=== PATIENT | male | born 1990 | race Caucasian/White ===

== ENCOUNTER 2017-01-13 20:52 | Inpatient (IN) | payer BC, OTHER ==
[~2017-01-13] VITALS: Ht 185.4 cm; Wt 81.6 kg
--- NOTE | 2017-01-14 04:08 | NUR ---
ADMISSION NOTE Pt arrived ambulatory to the [facility] 3rd floor (accompanied by [facility] staff) at approximately 0325. Pt is a 26 y/o male ( born on 1990) being admitted for Xanax, and Heroin, Cocaine, and Marijuana dependence and use. Pt reported allergies to SSRI's (Selective Serotonin Reuptake Inhibitors) and also reported PMH of ADHD, Anxiety, Body Dysmorphia, Depression, OCD, and PTSD. Pt is unmarried and without children. Pt reported "I completed two years of college, but I'm not working right now. I have an apartment, but my lease is up Thursday and after this I'm going to a sober living after this." Pt reported not having a primary care physician or psych doctor at this time. Pt arrived with one bottle of Gabapentin 600 mg , and also reported taken Wellbutrin(6 months ago) and Seroquel(2 months ago). Pt was then asked about his substance use history including; what substance (s) he uses, the frequency, dose, route, last use, and last amount used. Pt responded " I've been using Heroin for three years. I use needles. It's not every day, but more like every other day. For the past 2 months it's been like 1 gram. I've been taking Xanax on and off for years, but for the past 2 months I've been taking up to five bars(10 mg) every few days. I just started mixing a little Cocaine with the Heroin, so it's never a lot. Probably up to half a gram(0.5 gram). I've been smoking Marijuana since I was 15 y/o (approx. 11 years). I used to smoke like a quarter of an ounce a day. Now I probably smoke 3 grams a day. The last time I had Heroin, Cocaine, and Marijuana was today before I came(01/14/17). Literally a couple of hours ago. I had a gram of Heroin, half a gram of Cocaine (0.5 g) and I smoked a blunt (equivalent to 1 gram). I took 3 bars (6 mg ) of Xanax three days ago (01/11/17). I've taken Valium and Klonopin in the past, but not in a long time and I don't take them anymore. Pt was then asked about his treatment history. Pt stated " I was in [facility] for about 1 month, then I went to [facility] and I was there for 6 or 7 weeks." Upon assessment pt is a/o x 4 with no changes in LOC. Pt's skin is dry and intact. Pt's breathing is even and unlabored. No SOB noted or reported. Lung auscultations clear in all lobes. PERRLA noted. Hand ob nurse strong bilaterally. Skin turgor indicates adequate hydration. Bowel sounds active in all four quadrants. Abdomen soft and non distended. Pt reported having a bowel movement yesterday morning (01/13/17). Flatulence is present. Pt denies any pain/discomfort at this time. Pt is encouraged to notify staff of any changes in condition or of any concerns. Pt verbalized an understanding. Vital Signs: BP: 107/75 P:90 T: 98.4 R: 20 Pain: 0/10 Oxygen Saturation: 99% COW: 2 CIWA: 0. All safety measures in place; side rails up x 2, bed locked and in low position, and call light within reach. UA to be collected and sent to the lab for testing. Will continue to monitor.
[2017-01-14] MEDS ORDERED: GABA600T2 PO (04:22)
--- NOTE | 2017-01-14 05:30 | NUR ---
NURSE'S NOTE UA was collected and sent to the lab for testing.
[2017-01-14 05:38] LABS: *AMPHETAMINE, URINE POSITIVE (NEGATIVE); *BARBITURATE, URINE NEGATIVE (NEGATIVE); *CANNABINOID, URINE POSITIVE (NEGATIVE); *COCCAINE, URINE POSITIVE (NEGATIVE); *OPIATE, URINE POSITIVE (NEGATIVE); *PHENCYCLIDINE SCREEN,URINE NEGATIVE (NEGATIVE)
[2017-01-14] MEDS ORDERED: LOPERAMIDE HCL 2 MG CAPSULE PO PRN ×2 (06:15)
[2017-01-14] MEDS ORDERED: LORAZEPAM 2 MG/1 ML VIAL IM PRN ×2 (06:15→10:00)
[2017-01-14] MEDS ORDERED: MIRALAX 17 GM POWD.PACK PO PRN (06:15)
[2017-01-14] MEDS ORDERED: MAG HYDROX/AL HYDROX/SIMETH 30 ML LIQUID UDC PO PRN (06:15)
[2017-01-14] MEDS ORDERED: PROMETHAZINE HCL 25 MG/1 ML VIAL IM PRN (06:15)
[2017-01-14] MEDS ORDERED: diphenhydrAMINE 50 MG CAPSULE PO PRN (06:15)
[2017-01-14] MEDS ORDERED: ONDANSETRON ODT 4 MG TAB.RAPDIS SL PRN (06:15)
[2017-01-14] MEDS ORDERED: LORAZEPAM 1 MG TABLET PO PRN ×4 (06:15→10:00)
[2017-01-14] MEDS ORDERED: MAGNESIUM HYDROXIDE 30 ML LIQUID UDC PO PRN (06:15)
[2017-01-14] MEDS ORDERED: BUPRENORPHINE HCL 2 MG TAB.SUBL SL PRN ×2 (06:15→10:00)
--- NOTE | 2017-01-14 07:05 | NUR ---
Start of Shift Endorsement received from nightshift nurse. Pt is a 26 y/o admitted for Heroin, cocaine and xanax dependence. Pt has been placed under observation until farther evaluation by Dr. Pandey. Pt is tolerating the detox at this time AEB COWS 2, CIWA 1 and reports sleeping 3 hours. VS WNL, Full Code. PT is alert and oriented x4. Pt is in STABLE condition at this time. Remains compliant with medication and diet regimen. All needs have been met, All safety measures in place per hospital policy. Bed in lowest position, side rails up x2, call-light within reach. Will continue to monitor
--- NOTE | 2017-01-14 07:25 | NUR ---
END OF SHIFT NOTE Pt is a 26 y/o male admitted today (01/14/17) for Xanax, Heroin, Cocaine, and Marijuana dependence and use. Pt reported having a allergy to SSRI's (Selective Serotonin Reuptake Inhibitors) and also reported a PMH of ADHD, anxiety, body dysmorphia, depression, OCD, and PTSD. Pt is not on a scheduled taper at this time but has PRN medications for any discomfort/distress. Pt didn't receive any PRNS during the shift. Pt slept for a total of 2 hours. Last COW: 2 and CIWA: 2 at the time of admission (approx 0400). All safety measures in place; side rails up x 2, bed locked and in low position , and call light within reach. Will continue to monitor.
[2017-01-14 07:28] LABS: BASOPHILS # (AUTO) 0.1 K/uL (0.0-0.2); BASOPHILS % (AUTO) 1.5 % (0.0-2.0); EOSINOPHILS # (AUTO) 0.1 K/uL (0.0-0.7); EOSINOPHILS % (AUTO) 1.9 % (0.0-7.0); HEMATOCRIT 36.1 % (40.0-50.0); HEMOGLOBIN 12.1 g/dL (14.0-18.0); LYMPHOCYTES # (AUTO) 1.8 K/uL (0.8-4.8); LYMPHOCYTES % (AUTO) 25.4 % (20.5-51.5); MEAN CORPUSCULAR HEMOGLOBIN 28.9 uug (27.0-31.0); MEAN CORPUSCULAR HGB CONC 33 g/dL (32.0-37.0); MEAN CORPUSCULAR VOLUME 86.6 fL (82.0-92.0); MONOCYTES % (AUTO) 14.8 % (0.0-11.0); NEUTROPHILS # (AUTO) 3.9 K/uL (1.8-8.9); NEUTROPHILS % (AUTO) 56.4 % (38.5-71.5); PLATELET COUNT (AUTO) 250 K/uL (150-450); RED BLOOD CELL COUNT(AUTO) 4.17 MIL/uL (4.70-6.10); RED CELL DISTRIBUTION WIDTH 12.7 % (11.5-14.5); WHITE BLOOD COUNT (AUTO) 6.9 K/uL (4.0-11.2)
[2017-01-14 07:44] LABS: ALANINE AMINOTRANSFERASE 18 U/L (16-63); ALBUMIN 3.4 g/dL (3.4-5.0); ALKALINE PHOSPHATASE 55 U/L (50-136); AMYLASE 46 U/L (25-115); ASPARTATE AMINOTRANSFERASE 16 U/L (15-37); BILIRUBIN,TOTAL 0.3 mg/dL (0.2-1.0); CALCIUM 8.3 mg/dL (8.5-10.1); CARBON DIOXIDE 29 mmol/L (21-32); CHLORIDE 104 mmol/L (98-107); GFR 90 mL/min (>60); GLUCOSE 104 mg/dL (74-106); LIPASE 103 U/L (73-393); MAGNESIUM 2.1 mg/dL (1.8-2.4); POTASSIUM 4.2 mmol/L (3.5-5.1); SODIUM SERUM 141 mmol/L (136-145); TOTAL PROTEIN, SERUM 6.8 g/dL (6.4-8.2); UREA NITROGEN, BLOOD 23 mg/dL (7-18)
[2017-01-14 08:00] VITALS: BP 121/64
[2017-01-14 08:00] LABS: ETHANOL < 3 MG/DL (0-0)
[2017-01-14 08:42] LABS: HIV-1 p24 ANTIGEN NON REACTIVE (NONREACTIVE); HIV-1/2 ANTIBODY NON REACTIVE (NONREACTIVE)
[2017-01-14] MEDS ORDERED: TUBERCULIN,PURIF.PROT.DERIV. 5 TU/0.1 ML TEST ID ONE (09:00)
[2017-01-14] MEDS: MULTIVITAMINS,THERAPEUTIC TABLET PO SCH (11:01)
[2017-01-14 12:00] VITALS: BP 127/66
--- NOTE | 2017-01-14 12:24 | NUR ---
PRN Medications Administered PRN Ativan and Robaxin for CIWA 8 per protocol. Will Re-assess.
[2017-01-14] MEDS: METHOCARBAMOL 750 MG TABLET PO PRN (12:27)
[2017-01-14] MEDS ORDERED: Medication Not On Formulary EA (Gabapentin 1 TAB) PO SCH (13:00)
--- NOTE | 2017-01-14 13:00 | NUR ---
Medication Re-assessment Medications were effective, CIWA 5 upon re-assessment.
[2017-01-14] MEDS ORDERED: HYDROXYZINE PAMOATE 25 MG CAPSULE PO PRN (13:15)
[2017-01-14] MEDS: GABAPENTIN 300 MG CAPSULE PO SCH ×2 (14:31→17:41)
[2017-01-14] MEDS: CLONIDINE HCL 0.1 MG TABLET PO SCH ×2 (15:17→20:43)
[2017-01-14 16:00] VITALS: BP 112/58
--- NOTE | 2017-01-14 19:19 | NUR ---
End of Shift Endorsement given to nightshift nurse. Pt is a 26 y/o admitted for Heroin, cocaine and xanax dependence. Pt has been placed under observation until farther evaluation by Dr. Pandey. Pt is tolerating the detox at this time AEB COWS 5, CIWA 3. Pt participated in group and ate all his meals. Pt reports readiness for sobriety. Educated PT on deep breathing techniques. Pt received PRN Robaxin and Ativan per protocol. Intake: 2465, Void x2, BM x0. VS WNL, Full Code. PT is alert and oriented x4. Pt is in STABLE condition at this time. Remains compliant with medication and diet regimen. All needs have been met, All safety measures in place per hospital policy. Bed in lowest position, side rails up x2, call-light within reach. Will continue to monitor
[2017-01-14 20:00] VITALS: BP 112/67
--- NOTE | 2017-01-14 20:00 | NUR ---
1999 Patient received sleeping in prone position. Aroused easily for nurse assess and vital signs. Patient responds to nurse's greeting and introduction with, " Oh hi, how are you?" Patient's color is slightly pale pink and his skin is clean, warm, very slightly moist and intact. Patient is oriented to person, place, day, date and his personal situation. Easily reoriented to time. Patient's lung sounds are clear bilaterally and active bowel sounds are noted x 4 abdominal Quads, per auscultation. Patient states that he has not gone to [facility] as he is 'tired and catching up on his rest right now'. Patient states that he has been eating and taking fluids ad adiel with no real gastric issue so far. Vital signs are" 98.1-91-18 112/67 O2 sat 99%, COWS 4, CIWA 3. Patient denies any pain or other discomfort at this time. Patient was admitted on 01/14/17 for: Heroin, Cocaine, Xanax and Marijuana withdrawal and he s on PRN medications only, with no medication tapers ordered at this time. Patient is pleasant,cooperative and verbally appropriate at this time and he voices no requests presently. Bed is locked and in lowest position, bed rails are up X 2 and call light within patient's easy reach.
[2017-01-14] MEDS: QUETIAPINE FUMARATE 200 MG TABLET PO SCH (20:43)
[2017-01-14] MEDS: DICYCLOMINE HCL 20 MG TABLET PO PRN (20:44)
--- NOTE | 2017-01-14 20:44 | NUR ---
PRN MEDICATION: Prn Bentyl 20 mg p.o. given for c/o abdominal spasms
--- NOTE | 2017-01-14 21:44 | NUR ---
REASSESSMENT PRN MEDICATION: Patient states that his "stomach is feeling better now".
[2017-01-15] VITALS: BP 107/63
--- NOTE | 2017-01-15 04:00 | NUR ---
Patient refused V/S, COWS, CIWA to be done at this time.
--- NOTE | 2017-01-15 06:30 | NUR ---
0630 Patient had an uneventful night, sleeping a total of 7 hours. Total intake was 1,375 ml p.o. and he had 2 voids and no stools at bathroom. Prn medication given noted separately per floor protocol. V/SS afebrile, COWS 4, CIWA 3. Patient is presently sleeping soundly with eyes closed and respirations quiet, even and unlabored at 14. Patient is in stable condition at this time.
--- NOTE | 2017-01-15 07:00 | NUR ---
Start of Shift Endorsement received from nightshift nurse. Pt is a 26 y/o admitted for Heroin, cocaine and Xanax dependence. Pt has been placed under observation until farther evaluation by Dr. Pandey. Pt is tolerating the detox and mildly at this time AEB COWS 4, CIWA 3 and reports sleeping 8 hours. Pt received PRN Benadryl. VS WNL, Full Code. PT is alert and oriented x4. Pt is in STABLE condition at this time. Remains compliant with medication and diet regimen. All needs have been met, All safety measures in place per hospital policy. Bed in lowest position, side rails up x2, call-light within reach. Will continue to monitor
[2017-01-15 08:00] VITALS: BP 98/56
[2017-01-15] MEDS: CLONIDINE HCL 0.1 MG TABLET PO SCH ×3 (09:06→20:46)
[2017-01-15] MEDS: GABAPENTIN 300 MG CAPSULE PO SCH ×3 (09:06→17:19)
[2017-01-15] MEDS: MULTIVITAMINS,THERAPEUTIC TABLET PO SCH (09:06)
[2017-01-15] MEDS ORDERED: BACLOFEN 20 MG TABLET PO PRN (11:00)
[2017-01-15 12:00] VITALS: BP 109/72
[2017-01-15 16:00] VITALS: BP 116/74
[2017-01-15] MEDS: METHOCARBAMOL 750 MG TABLET PO PRN (17:19)
[2017-01-15] MEDS: IBUPROFEN 400 MG TABLET PO PRN (17:19)
[2017-01-15] MEDS: DICYCLOMINE HCL 20 MG TABLET PO PRN (17:19)
--- NOTE | 2017-01-15 17:20 | NUR ---
PRN Medications PT reports diarrhea, restless legs, stomach cramps and 6/10 generalized body aches. Administered Motrin 400mg, Imodium 4mg, Bentyl and Robaxin 750mg. Will re-assess
--- NOTE | 2017-01-15 17:45 | NUR ---
Medication Re-assessment All medications have been effective, pt reports 2/10 pain and COWS went from 9 to 4.
--- NOTE | 2017-01-15 18:59 | NUR ---
START OF SHIFT NOTE Patient endorsed by outgoing day shift nurse. SBAR report received. Patient is a 26 years old male admitted to [facility] on 01/14/2017 for Benzo/Opioid dependence, placed on 3 day Subutex started on 01/15/2017 at 2100. Allergies: SSRI; Regular diet; Full Code; Fall Precautions. No history of seizures. PMH: Anxiety, ADHD, Body dysmorphia, Depression; OCD, PTSD. Substance abuse history: Xanax PO "10 mg q3 d during 2 months". Last used "6 mg on 01/11/2017". Heroin via IV " 1 gram every other last two months". Last used 1 gram on 01/14/2017". Cocaine via IV " 0.5 gram every other day last two months. Last used 0.5 gram on 01/14/2017". Marijuana via inhalation "3 grams every day. Last used 1 gram on 01/14/2017". Upon assessment CIWA 8 COWS 8: Patient c/o increased anxiety, restlessness, sweating, bones and muscles aches 7/10; mild headache; tremors that can felt. VS: T: 98'1; Pulse: 84; RR: 19; O2Sat: 97%; BP: 116/68; Pain level in the legs bilaterally: 7/10. Patient attended activity groups. Safety measures in the place by hospital policy: Call light within reach; Bed in the lowest position and locked; Bed rails up x2. Will continue to monitor. Addendum: 01/16/17 at 1945 by BALJEET GARZA RN Breathing is unlabored and even; Lungs are clear bilaterally; Patient denied SOB and heart pain. Stomach is soft and non-distended. BS are active in all x4 quadrants. Last BM on 01/16/2017. Skin is intact and occasionally moist . Patient c/o pain in his legs bilaterally: 04/27.
--- NOTE | 2017-01-15 18:59 | NUR ---
End of Shift Endorsement given to nightshift nurse. Pt is a 26 y/o admitted for Heroin, cocaine and xanax dependence. Pt has been placed on a 3 day Subutex taper scheduled to began on 01/15/17 at 2100. Pt is tolerating the detox and moderately withdrawing at this time AEB COWS 6, CIWA 2. Pt participated in group and ate all his meals. Pt reports readiness for sobriety. Educated PT on deep breathing techniques. Pt received PRN Robaxin, Clonidine, Bentyl, Imodium and Motrin. Intake: 1750, Void x2, BM x0. VS WNL, Full Code. PT is alert and oriented x4. Pt is in STABLE condition at this time. Remains compliant with medication and diet regimen. All needs have been met, All safety measures in place per hospital policy. Bed in lowest position, side rails up x2, call-light within reach. Will continue to monitor
[2017-01-15 20:00] VITALS: BP 116/68
[2017-01-15] MEDS: QUETIAPINE FUMARATE 200 MG TABLET PO SCH (20:45)
[2017-01-15] MEDS ORDERED: BUPRENORPHINE HCL 2 MG TAB.SUBL SL SCH (21:00)
[2017-01-16] VITALS: BP_SYST 107; BP_SYST 152; BP_DIAS 53; BP_DIAS 70
[2017-01-16 03:06] LABS: HCV AB <0.1 s/co ratio (0.0-0.9); HEPATITIS B CORE AB, IgM Negative (Negative); HEPATITIS B SURFACE AG Negative (Negative)
[2017-01-16 04:00] VITALS: BP 101/52
--- NOTE | 2017-01-16 06:53 | NUR ---
END OF SHIFT NOTE Patient endorsed to outgoing day shift nurse in stable condition. Report given. Patient is a 26 years old male admitted to [facility] on 01/14/2017 for Benzo/Opioid Dependence, placed on 3 day Subutex started on 01/15/2017 at 2100. Allergies: SSRI; Regular diet; Full Code; Fall Precautions. No history of seizures. PMH: Anxiety, ADHD, Body Dysmorphia, Depression, OCD, PTSD. Substance abuse History: Xanax PO "10 mg q 3 d during 2 months". Last used "6 mg on 01/11/2017". Heroin via IV " 1 gram every other last two months". Last used 1 gram on 01/14/2017". Cocaine via IV " 0.5 gram every other day last two months. Last used 0.5 gram on 01/14/2017". Marijuana via inhalation "3 grams every day. Last used 1 gram on 01/14/2017". During my shift CIWA decreased from 8 to 3; COWS decreased from 8 to 4: patient presented with anxiety, restlessness, sweating, bones and muscles aches 7/10; mild headache; tremors that can felt. VS at 04:00: T: 98'2; Pulse: 53; RR: 16; O2Sat: 99%; BP: 101/52; Pain level in the legs bilaterally: 6/10. No PRN Medications administrated last night. Patient slept 10 hours; Intake 855 ml; output x1. Safety measures in the place by hospital policy: Call light within reach; Bed in the lowest position and locked; Bed rails up x2.
--- NOTE | 2017-01-16 07:09 | NUR ---
Start of Shift Endorsement received from nightshift nurse. Pt is a 26 y/o admitted for Heroin, cocaine and Xanax dependence. Pt has been placed on a 3 day Subutex taper set to beging on 01/15/172099, first dose was initiated at 2100. Pt is tolerating the detox and mildly at this time AEB COWS 4, CIWA 3 and reports sleeping 10 hours. No PRN medications were administered. VS WNL, Full Code. PT is alert and oriented x4. Pt is in STABLE condition at this time. Remains compliant with medication and diet regimen. All needs have been met, All safety measures in place per hospital policy. Bed in lowest position, side rails up x2, call-light within reach. Will continue to monitor
[2017-01-16 08:00] VITALS: BP 114/66
[2017-01-16] MEDS: GABAPENTIN 300 MG CAPSULE PO SCH ×3 (08:58→17:43)
[2017-01-16] MEDS: CLONIDINE HCL 0.1 MG TABLET PO SCH ×3 (08:59→20:21)
[2017-01-16] MEDS: BUPRENORPHINE HCL 2 MG TAB.SUBL SL SCH ×3 (09:00→20:21)
[2017-01-16] MEDS: MULTIVITAMINS,THERAPEUTIC TABLET PO SCH (09:00)
[2017-01-16] MEDS: DICYCLOMINE HCL 20 MG TABLET PO PRN (09:05)
[2017-01-16] MEDS: METHOCARBAMOL 750 MG TABLET PO PRN (09:05)
--- NOTE | 2017-01-16 09:05 | NUR ---
PRN Medications Administered PRN Bentyl for stomach cramps, Robaxin for restless legs and Imodium 2mg for diarrhea reported by the pt. Will re-assess.
--- NOTE | 2017-01-16 09:40 | NUR ---
Medication Re-assessment All medications were effective. Pt reports that diarrhea has stopped, and his restless legs and stomach cramps have subsided.
[2017-01-16 12:00] VITALS: BP 107/69
[2017-01-16 16:00] VITALS: BP 125/65
--- NOTE | 2017-01-16 18:41 | NUR ---
START OF SHIFT NOTE Patient endorsed by outgoing day shift nurse. SBAR report received. Patient is a 26 years old male admitted to [facility] on 01/14/2017 for Benzo/Opioid dependence, placed on 3 day Subutex started on 01/15/2017 at 2100 and tolerating well. Allergies: SSRI. Patient placed on Regular diet; Full Code; Fall Precautions. Patient denies history of Seizure. Substance abuse history: Xanax PO "10 mg q3 d during 2 months". Last used "6 mg on 01/11/2017". Heroin via IV " 1 gram every other last two months". Last used 1 gram on 01/14/2017". Cocaine via IV " 0.5 gram every other day last two months. Last used 0.5 gram on 01/14/2017". Marijuana via inhalation "3 grams every day. Last used 1 gram on 01/14/2017". Past Medical History 's collected from patient": Anxiety, ADHD, Body dysmorphia, Depression; OCD, PTSD. Upon assessment CIWA 3 COWS 5: Patient c/o increased anxiety, sweating, bones and muscles aches 5/10; mild headache; tremors that can felt. VS WNL . Breathing is unlabored and even; Lungs are clear bilaterally; Patient denied SOB and heart pain. Stomach is soft and non-distended. BS are active in all x4 quadrants. Skin is intact and occasionally moist . Patient c/o pain in his legs bilaterally: 7/10. Patient attended activity groups. PRN Medications that was given to patient during day shift: Imodium PO; Bentyl PO; and Robaxin were effective. Patient remains compliant with medications and diet regime. Patient's educated for breathing techniques. Patient verbalized understanding by return his knowledge back. Safety measures in the place by hospital policy: Call light within reach; Bed in the lowest position and locked; Bed rails up x2. Will continue to monitor.
--- NOTE | 2017-01-16 18:41 | NUR ---
End of Shift Endorsement given to nightshift nurse. Pt is a 26 y/o admitted for Heroin, cocaine and xanax dependence. Pt has been placed on a 3 day Subutex taper that started on 01/15/17 at 2100. Pt is tolerating the detox and moderately withdrawing at this time AEB COWS 3, CIWA 1. Pt participated in group and ate all his meals. Pt reports readiness for sobriety. Educated PT on importance of learning the appropriate coping techniques to deal with future triggers in his life. Pt received PRN Robaxin, Bentyl and Imodium. Intake: 1500, Void x3, BM x1. VS WNL, Full Code. PT is alert and oriented x4. Pt is in STABLE condition at this time. Remains compliant with medication and diet regimen. All needs have been met, All safety measures in place per hospital policy. Bed in lowest position, side rails up x2, call-light within reach. Will continue to monitor
[2017-01-16 20:00] VITALS: BP 121/75
[2017-01-16] MEDS: QUETIAPINE FUMARATE 200 MG TABLET PO SCH (20:21)
[2017-01-16] MEDS: ACETAMINOPHEN 325 MG TABLET PO PRN (20:30)
--- NOTE | 2017-01-16 20:30 | NUR ---
PRN TYLENOL PO ADMINISTRATION Patient c/o headache and generalized pain: Pain level 7/10. Patient 's assessed. PRN Tylenol discussed with patient. Patient 's educated for actions, adverse reactions, and side effects of the Tylenol. Patient returned back his knowledge by verbalizing understanding. Safety measures on the place: Call light within reach; Bed in the lowest position and locked; Side rails up x2. Will continue to monitor. Addendum: 01/16/17 at 2144 by BALJEET GARZA RN PRN Tylenol PO administrated as ordered at 20:30. Patient tolerated well.
--- NOTE | 2017-01-16 21:30 | NUR ---
REASSESSMENT Patient 's reassessed. Patient denies any pain now:"0/10". PRN Tylenol PO was effective. Safety measures in the place by hospital policy: Call light within reach; Bed is locked and in the lowest position. Will continue to monitor.
[2017-01-17] VITALS: BP 99/54
--- NOTE | 2017-01-17 04:00 | NUR ---
VS REFUSED AND CIWA/COWS DEFERRED Patient refused to be woken up for 00:00 VS. CIWA/COWS deferred d/t patient sleeping to assess while patient is awake. Safety measures on place by hospital policy: Call light within reach; Bed in lowest position and locked; side rails up x2. Will continue to monitor. Addendum: 01/17/17 at 0414 by BALJEET GARZA RN Patient refused to be woken up for 04:00.
--- NOTE | 2017-01-17 06:53 | NUR ---
END OF SHIFT NOTE Patient is a 26 years old male admitted to [facility] on 01/14/2017 for Benzo/Opioid dependence, placed on 3 day Subutex started on 01/15/2017 at 2100. Patient tolerating well to taper. Allergies: SSRI; Regular diet; Full Code; Fall Precautions. No history of seizures. PMH: Anxiety, ADHD, Body dysmorphia, Depression; OCD, PTSD. Substance abuse history: Xanax PO "10 mg q3 d during 2 months". Last used "6 mg on 01/11/2017". Heroin via IV " 1 gram every other last two months". Last used 1 gram on 01/14/2017". Cocaine via IV " 0.5 gram every other day last two months. Last used 0.5 gram on 01/14/2017". Marijuana via inhalation "3 grams every day. Last used 1 gram on 01/14/2017". During shift supervisor rn patient presented with anxiety, restlessness, sweating, bones and muscles aches, headache, tremors that can felt. CIWA decreased from 7 to 4; COWS decreased from 5 to 4. PRN Tylenol PO for pain 04/27 administrated and was effective. Patient remains compliant with treatment plan, medications, and diet regime. Patient slept 10 hours; Intake 1355 ml; Output x2; BM x1. Safety measures in the place by hospital policy: Call light within reach;Bed in the lowest position and locked; Bed rails up x2.Patient endorsed to day shift nurse in stable condition. Report given.
[2017-01-17 08:00] VITALS: BP 122/67
--- NOTE | 2017-01-17 08:05 | NUR ---
START OF SHIFT: RECEIVED PT A/O X 4. HE REPORTS NIGHT SWEATS ,CHILLS AND BODY ACHES. HE ALSO REPORTS FATIGUE. HE CONTINUES ON SUBUTEX TAPER. COWS 6. HE STATES HIS SLEEP WAS RESTLESS LAST NIGHT AND HE WOULD LIKE TO REST AFTER MED ADMINISTRATION. ENCOURAGED INCREASED FLUIDS TO ASSIST IN FACILITATING DETOX PROCESS. WILL CONTINUE TO MONITOR AND OFFER SAFE AND SUPPORTIVE ENVIRONMENT.
[2017-01-17] MEDS: CLONIDINE HCL 0.1 MG TABLET PO SCH ×3 (08:57→20:26)
[2017-01-17] MEDS: MULTIVITAMINS,THERAPEUTIC TABLET PO SCH (08:57)
[2017-01-17] MEDS: GABAPENTIN 300 MG CAPSULE PO SCH ×3 (08:58→20:24)
[2017-01-17] MEDS ORDERED: BUPRENORPHINE HCL 2 MG TAB.SUBL SL SCH (09:00)
[2017-01-17] MEDS ORDERED: ONDANSETRON ODT 4 MG TAB.RAPDIS SL PRN (11:30)
[2017-01-17] MEDS ORDERED: ONDANSETRON 4 MG/2 ML VIAL IM PRN (11:30)
[2017-01-17 12:00] VITALS: BP 110/57
[2017-01-17] MEDS: BUPRENORPHINE HCL 2 MG TAB.SUBL SL SCH ×2 (14:19→20:24)
[2017-01-17 16:00] VITALS: BP 116/67
--- NOTE | 2017-01-17 18:31 | NUR ---
END OF SHIFT: PT CONTINUES ON MODIFIED SUBUTEX TAPER. LAST COWS 5. HE PRESENTS WITH GUARDED AFFECT AND ANXIOUS MOOD. HE ISOLATED IN HIS ROOM MOST OF SHIFT WITH VERY LITTLE INTERACTION WITH PEERS. HE REPORTS SOME ANXIETY,MILD BODY ACHES , AND CHILLS AND SWEATS. HE REFUSED CLONIDINE EARLIER IN SHIFT AND STATED IT CAUSES HIM TO BE TOO DROWSY. PT STATES HE WILL TRY AND ATTEND GROUPS TOMORROW. WILL CONTINUE Addendum: 01/17/17 at 6 by BELLA PEREZ RN TO MONITOR
--- NOTE | 2017-01-17 18:40 | NUR ---
START OF SHIFT Patient is a 26 years old male admitted to [facility] on 01/14/2017 for Benzo/Opiate Dependence, placed on 3 Day Subutex started on 01/15/2017 at 21:00. Patient reported Allergies to SSRI's, Regular Diet. Patient on Full Code, Fall Precautions. No Seizure History. Past Medical History: Anxiety, ADHD, Body Dysmorphia, Depression, OCD, PTSD. Substance Use History: Xanax (PO): " 10 mg every 3 day last 2 months. Last used 0.5 gram on 01/14/2017". Heroin (IV): "1 gram every other day last two months. Last used 1 gram on 01/14/2017". Cocaine (IV): "0.5 gram every other day last two months. Last used 0.5 gram on 01/14/2017". Marijuana (inhalation): " 3 grams daily last two months. Last used 1 gram on 01/14/2017". Recent Hospitalizations/Treatments History: "[facility]" : "10 months". "[facility]": "6 or 7 weeks". Patient endorsed by day shift nurse. Report received. Upon assessment patient is alert and oriented x4, cooperative. Speech is soft. COWS 5; CIWA 4: patient presents with mild anxiety, restlessness, headache: "5/10", bones and joints aching: "5/10", barely sweating. VS: T: 98.6; HR: 86; RR: 19; Room Air O2 Sat: 98%. Pain level in the Right and Left Legs: "5/10".Breathing is unlabored and even. Lungs Sounds are clear bilaterally upon auscultation. Patient denies SOB and Heart pain. Bowel Sounds are active in all x4 quadrants. Abdomen is soft and non-distended. Last BM 's today, 01/17/2017 at 10:00. Skin is intact, warm, and moist by touch. Patient c/o barely sweating. Patient denies N/V and diarrhea. Patient remains compliant with medications, diet, and therapeutic plan. Patient 's educated for Fall Prevention in Hospital. Patient returns his knowledge back by verbalizing understanding. Patient attended activities groups. Safety measures in the place by hospital policy: Call light within reach, bed in the lowest position and locked, bedrails up x2. Will continue to monitor.
[2017-01-17 20:00] VITALS: BP 106/64
[2017-01-17] MEDS: ACETAMINOPHEN 325 MG TABLET PO PRN (20:25)
[2017-01-17] MEDS: QUETIAPINE FUMARATE 200 MG TABLET PO SCH (20:25)
--- NOTE | 2017-01-17 20:25 | NUR ---
PRN TYLENOL PO ADMINISTRATION Patient c/o headache . Pain level 5/10. Patient 's assessed. PRN Tylenol PO discussed with patient. Patient 's educated for actions, adverse reactions, and side effects of the Tylenol. Patient returned back his knowledge by verbalizing understanding. PRN Tylenol PO 650 mg, 2 tabs, administrated as ordered. Patient tolerated well. Will reassessed in 1 hour. Safety measures on the place: Call light within reach; Bed in the lowest position and locked; Side rails up x2. Will continue to monitor.
--- NOTE | 2017-01-17 21:25 | NUR ---
REASSESSMENT Patient is sleeping on his bed. RR: 15. Breathing is unlabored and even. PRN Tylenol PO was effective. Safety measures in the place by hospital policy: Call light within reach, bed in the lowest position and locked, bed rails up x2. Will continue to monitor.
[2017-01-18] VITALS: BP 104/52
--- NOTE | 2017-01-18 04:00 | NUR ---
VS REFUSED AND CIWA/COWS DEFERRED Patient refused to be woken up for 04:00 VS. CIWA/COWS deferred d/t patient sleeping to assess while patient is awake. Safety measures on place by hospital policy: Call light within reach; Bed in lowest position and locked; side rails up x2. Will continue to monitor.
--- NOTE | 2017-01-18 06:48 | NUR ---
END OF SHIFT NOTE Patient is a 26 years old male admitted to [facility] on 01/14/2017 for Benzo/Opioid dependence, placed on 3 day Subutex started on 01/15/2017 at 2100. Patient tolerating well to taper. Allergies: SSRI; Regular diet; Full Code; Fall Precautions. No history of seizures. PMH: Anxiety, ADHD, Body dysmorphia, Depression; OCD, PTSD. Substance abuse history: Xanax PO "10 mg q3 d during 2 months". Last used "6 mg on 01/11/2017". Heroin via IV " 1 gram every other last two months". Last used 1 gram on 01/14/2017". Cocaine via IV " 0.5 gram every other day last two months. Last used 0.5 gram on 01/14/2017". Marijuana via inhalation "3 grams every day. Last used 1 gram on 01/14/2017". 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 CIWA decreased from 4 to 2; COWS decreased from 5 to 2. PRN Tylenol PO for headache was effective. Patient slept 6 hours; Intake 355 ml; output x1. Safety measures in the place by hospital policy: Call light within reach; Bed in the lowest position and locked; Bed rails up. Addendum: 01/18/17 at 0652 by BALJEET GARZA RN Patient endorsed to day shift nurse in stable condition. SBAR report given.
[2017-01-18 08:00] VITALS: BP 92/53
--- NOTE | 2017-01-18 08:00 | NUR ---
START OF SHIFT RECEIVED PT AOX4. PT AWAKE IN BED EATING BREAKFAST.PT SLEPT 6 HOURS LAST NIGHT AND STATES HE FEELS FATIGUED. NO PRNS GIVEN LAST NIGHT PER PAINTER AND BODY WORK REPORT. PT CONTINUES 3 DAY SUBUTEX TAPER. COWS 3 CIWA 3 THIS AM. PT C/O SWEATING AND MILD ANXIETY. PT STATES HE WANTS TO CONTINUE SLEEPING FOR A FEW HOURS BUT PLANS TO ATTEND GROUP AT 1100 THIS AM. BED IN LOWEST POSITION AND CALL [place]CHA IN REACH. WILL CONTINUE TO MONITOR AND PROVIDE SAFE AND SUPPORTIVE ENVIRONMENT.
[2017-01-18] MEDS: GABAPENTIN 300 MG CAPSULE PO SCH ×3 (08:42→20:15)
[2017-01-18] MEDS: CLONIDINE HCL 0.1 MG TABLET PO SCH ×3 (08:42→20:15)
[2017-01-18] MEDS: MULTIVITAMINS,THERAPEUTIC TABLET PO SCH (08:42)
[2017-01-18 08:43] VITALS: BP 120/84
[2017-01-18] MEDS: BUPRENORPHINE HCL 2 MG TAB.SUBL SL SCH ×3 (08:43→20:18)
[2017-01-18 12:00] VITALS: BP 99/64
[2017-01-18 16:00] VITALS: BP 121/76
[2017-01-18] MEDS: DICYCLOMINE HCL 20 MG TABLET PO PRN (16:26)
--- NOTE | 2017-01-18 16:26 | NUR ---
PRN MED Pt c/o of stomach cramps, non pharmacological intervention ineffective. Administered PRN Bentyl 20mg 1 tab Po as ordered. Will cont to monitor for effectiveness.
--- NOTE | 2017-01-18 17:26 | NUR ---
REASSESSMENT Pt reported medication effective, stomach cramps subside. Will cont to monitor.
--- NOTE | 2017-01-18 19:00 | NUR ---
END OF SHIFT NOTE Gave report to night nurse,26 year old male admitted for Benzo, Heroin, Cocaine, and Marijuana dependence and use. Pt reported having a allergy to SSRI's and also reported a PMH of ADHD, anxiety, body dysmorphia, depression, OCD, and PTSD. Pt cont with 3 days Subutex taper tolerated well. Pt received PRN Bentyl for stomach cramps noted to be effective. Vital signs stable. Pt attended all groups and activities. Pt's total intake 2600ml, voided x3 with x1 BM. Last COWS-3, CIWA-2. No s/s of distress noted. Safety measures in place, call light within reach. Pt endorsed to night nurse in stable condition.
[2017-01-18 20:00] VITALS: BP 129/70
--- NOTE | 2017-01-18 20:00 | NUR ---
Start of Shift Pt is a 26 year old male admitted on 01/14/2017 for Opiate/Benzo/Cocaine dependence, placed on 3 day Subutex taper. Pt reported using Heroin IV 1 gram every other day, Xanax PO 10mg every 3 days, Cocaine IV 0.5g every other day and marijuana inh 3g/daily. Pt is allergic to SSRIs, fall precautions - no history of seizures, regular diet and full code. PMH: Anxiety, ADHD, body dysmorphia, depression, OCD and PTSD. Upon assessment, mild tremors noted upon touch, pt is noted with moderate sweat, reports muscle aches, respirations even and unlabored, denies SOB/chest pain, denies n/v/d, skin warm, moist, intact, bowel sounds active x4, abdomen soft. Safety measures in place, call light within reach, side rails up x2, bed locked and in low position. Will continue to monitor.
[2017-01-18] MEDS: QUETIAPINE FUMARATE 200 MG TABLET PO SCH (20:16)
--- NOTE | 2017-01-19 | NUR ---
Pt refused to be woken up for 0000 VS CIWA/COWS deferred d/t pt sleeping, to asses while pt is awake as ordered. Pt is sleeping, no s/s of distress noted, respirations even and unlabored. Safety measures in place, call light within reach, side rails up x2, bed locked and in low position. Will continue to monitor.
--- NOTE | 2017-01-19 04:00 | NUR ---
Pt refused to be woken up for 0400 VS CIWA/COWS deferred d/t pt sleeping, to asses while pt is awake as ordered. Pt is sleeping, no s/s of distress noted, respirations even and unlabored. Safety measures in place, call light within reach, side rails up x2, bed locked and in low position. Will continue to monitor.
--- NOTE | 2017-01-19 07:00 | NUR ---
End of Shift Pt is a 26 year old male admitted on 01/14/2017 for Opiate/Benzo/Cocaine dependence, placed on 3 day Subutex taper. Pt reported using Heroin IV 1 gram every other day, Xanax PO 10mg every 3 days, Cocaine IV 0.5g every other day and marijuana inh 3g/daily. Pt is allergic to SSRIs, fall precautions - no history of seizures, regular diet and full code. PMH: Anxiety, ADHD, body dysmorphia, depression, OCD and PTSD. During shift pt presented with moderate sweat/tremors felt upon touch - scheduled taper medications administered, effective in management of s/s of withdrawal, COWS 2 and CIWA 2. No PRN medications administered, pt is complaint with plan of care. Pt slept for 5 hours, intake of 1091 ml PO and voids x1. Safety measures in place, call light within reach, side rails up x2, bed locked and in low position. Endorsed to day shift nurse.
--- NOTE | 2017-01-19 07:49 | NUR ---
START OF SHIFT NOTE Received report from night nurse, 26 year old male admitted for Benzo, Heroin, Cocaine, and Marijuana dependence and use. Pt reported having a allergy to SSRI's and also reported a PMH of ADHD, anxiety, body dysmorphia, depression, OCD, and PTSD. Pt cont with 3 days Subutex taper tolerated well. Per endorsement pt did not receive any PRN received, slept for 5 hours, Last COWS-2, CIWA-2, vital signs stable. Received pt in his room sleeping responsive to verbal and tactile stimuli, breathing normal no SOB noted, Skin intact warm and dry to touch. No s/s of distress noted. Safety measures in place, call light within reach. Will cont to monitor.
[2017-01-19 08:00] VITALS: BP 106/66
[2017-01-19] MEDS: MULTIVITAMINS,THERAPEUTIC TABLET PO SCH (08:39)
[2017-01-19] MEDS: GABAPENTIN 300 MG CAPSULE PO SCH ×3 (08:39→20:36)
[2017-01-19] MEDS: CLONIDINE HCL 0.1 MG TABLET PO SCH ×3 (08:41→20:36)
[2017-01-19] MEDS ORDERED: BUPRENORPHINE HCL 2 MG TAB.SUBL SL SCH (09:00)
[2017-01-19 12:00] VITALS: BP 93/64
[2017-01-19] MEDS: IBUPROFEN 400 MG TABLET PO PRN (14:10)
--- NOTE | 2017-01-19 14:10 | NUR ---
PRN MED Pt is c/o of headache 01/26, non pharmacological intervention ineffective. Administered PRN Motrin 400mg 1 tab Po as ordered. Will cont to monitor for effectiveness.
--- NOTE | 2017-01-19 15:10 | NUR ---
REASSESSMENT Upon reassessment pt verbalized medication effective headache subside pain level reported 10/28.
[2017-01-19 16:00] VITALS: BP 121/71
[2017-01-19] MEDS ORDERED: CLON0.1T14 PO (19:00)
[2017-01-19] MEDS ORDERED: METH-33 PO (19:00)
[2017-01-19] MEDS ORDERED: HYDR-3895 PO (19:00)
[2017-01-19] MEDS ORDERED: DICY20TA28 PO (19:00)
[2017-01-19] MEDS ORDERED: QUET200T PO (19:00)
--- NOTE | 2017-01-19 19:12 | NUR ---
END OF SHIFT NOTE Gave report to night nurse,26 year old male admitted for Benzo, Heroin, Cocaine, and Marijuana dependence and use. Pt reported having a allergy to SSRI's and also reported a PMH of ADHD, anxiety, body dysmorphia, depression, OCD, and PTSD. Pt completed with 3 days Subutex taper tolerated well. Pt received PRN Motrin for headache noted to be effective. Vital signs stable. Pt attended all groups and activities. Pt's total intake 2600ml, voided x3 with x1 BM. Last COWS-0, CIWA-1. Pt scheduled for discharge in AM. No s/s of distress noted. Safety measures in place, call light within reach. Pt endorsed to night nurse in stable condition.
[2017-01-19 20:00] VITALS: BP 126/72
--- NOTE | 2017-01-19 20:00 | NUR ---
Start of Shift Pt is a 26 year old male admitted on 01/14/2017 for Opiate/Benzo/Cocaine dependence, placed on 3 day Subutex taper, completed. Pt reported using Heroin IV 1 gram every other day, Xanax PO 10mg every 3 days, Cocaine IV 0.5g every other day and marijuana inh 3g/daily. Pt is allergic to SSRIs, fall precautions - no history of seizures, regular diet and full code. PMH: Anxiety, ADHD, body dysmorphia, depression, OCD and PTSD. Upon assessment, respirations even and unlabored, denies SOB/chest pain, denies n/v/d, skin warm, moist, intact, bowel sounds active x4, abdomen soft. Pt is scheduled for discharged tomorrow. Safety measures in place, call light within reach, side rails up x2, bed locked and in low position. Will continue to monitor.
[2017-01-19] MEDS: QUETIAPINE FUMARATE 200 MG TABLET PO SCH (20:36)
[2017-01-19] MEDS: ACETAMINOPHEN 325 MG TABLET PO PRN (20:37)
--- NOTE | 2017-01-19 20:37 | NUR ---
PRN Administration Pt reported tooth ache rated 7/10, requested relief. Tylenol 650mg PRN administered. Safety measures in place, call light within reach, side rails up x2, bed locked and in low position. Will continue to monitor.
--- NOTE | 2017-01-19 21:37 | NUR ---
PRN Reassessment Upon reassessment, pt reports tooth ache subsiding, rated 4/10. Needs met. Safety measures in place, call light within reach, side rails up x2, bed locked and in low position. Will continue to monitor.
[2017-01-19 22:49] LABS: *AMPHETAMINE, URINE NEGATIVE (NEGATIVE); *BARBITURATE, URINE NEGATIVE (NEGATIVE); *CANNABINOID, URINE NEGATIVE (NEGATIVE); *COCCAINE, URINE NEGATIVE (NEGATIVE); *OPIATE, URINE NEGATIVE (NEGATIVE); *PHENCYCLIDINE SCREEN,URINE NEGATIVE (NEGATIVE)
--- NOTE | 2017-01-20 07:00 | NUR ---
End of Shift Pt is a 26 year old male admitted on 01/14/2017 for Opiate/Benzo/Cocaine dependence, placed on 3 day Subutex taper, completed. Pt reported using Heroin IV 1 gram every other day, Xanax PO 10mg every 3 days, Cocaine IV 0.5g every other day and marijuana inh 3g/daily. Pt is allergic to SSRIs, fall precautions - no history of seizures, regular diet and full code. PMH: Anxiety, ADHD, body dysmorphia, depression, OCD and PTSD. During shift, scheduled medications administered. Tylenol 650mg PRN adminitered for tooth ache, effective as stated by pt. No acute s/s of [place] noted, COWS 1 and CIWA 0. Pt is scheduled for discharge today. VS stable, Pt slept for 8 hours, intake of 1200 ml PO and voids x2. VS stable, Safety measures in place, call light within reach, side rails up x2, bed locked and in low position. Endorsed to day shift nurse.
--- NOTE | 2017-01-20 07:34 | NUR ---
START OF SHIFT NOTE: Received report from bus or truck garage mechanic nurse. Pt is a 26 year old male admitted on 01/14/2017 for Opiate/Benzo/Cocaine dependence. To be discharged this AM. Pt is alert and oriented X4. Color good, skin warm and dry. Respirations even and unlabored. Safety precautions observed. Call light within reach.
[2017-01-20] MEDS: GABAPENTIN 300 MG CAPSULE PO SCH (08:05)
[2017-01-20] MEDS: CLONIDINE HCL 0.1 MG TABLET PO SCH (08:06)
[2017-01-20] MEDS: MULTIVITAMINS,THERAPEUTIC TABLET PO SCH (08:06)
[2017-01-20 08:15] VITALS: BP 112/60
--- NOTE | 2017-01-20 08:18 | NUR ---
VSS Discharge papers and medication form signed.
--- NOTE | 2017-01-20 09:23 | NUR ---
Pt discharged in stable condition with all valuables, belongings and medications. Niall HI/SI. To [facility] via [employer] private car.
== END 2017-01-20 09:23 | disposition other institution (70) | DRG 895 ==
LOC: SRC 01-14 02:48
PROVIDERS: ADMIT Internal Medicine; ATTEND Internal Medicine
PROC: HZ2ZZZZ Detoxification Services for Substance Abuse Treatment (ICD-10-PCS; principal; 2017-01-14)
PROC: HZ31ZZZ Individual Counseling for Substance Abuse Treatment, Behavioral (ICD-10-PCS; 2017-01-16)
PROC: HZ41ZZZ Group Counseling for Substance Abuse Treatment, Behavioral (ICD-10-PCS; 2017-01-16)
DX: F11.23 Opioid dependence with withdrawal (principal); Z81.4 Family history of other substance abuse and dependence; F13.239 Sedative, hypnotic or anxiolytic dependence with withdrawal, unspecified; F12.10 Cannabis abuse, uncomplicated; F90.9 Attention-deficit hyperactivity disorder, unspecified type; F14.220 Cocaine dependence with intoxication, uncomplicated; F41.9 Anxiety disorder, unspecified; F32.9 Major depressive disorder, single episode, unspecified; F43.10 Post-traumatic stress disorder, unspecified; F17.210 Nicotine dependence, cigarettes, uncomplicated
CPT/HCPCS: 36415; 70030-TC; 71010; 80307; 80324; 80349; 80353; 80361; 83690; 83735; 84443; 85025; 86580; 86592; 86705; 86803; 87340; 87806; A4663; G6040-TC